=== PATIENT | male | born 1960 | race American Indian/Alaskan Native ===

== ENCOUNTER 2021-06-30 00:54 | Emergency (ER) | payer OTHER ==
[~2021-06-30] VITALS: Ht 167.6 cm; Wt 74.8 kg
== END 2021-06-30 01:59 | disposition home or self-care (01) ==
LOC: ED 00:54
DX: T51.91XA Toxic effect of unspecified alcohol, accidental (unintentional), initial encounter (principal); S40.211A Abrasion of right shoulder, initial encounter; S00.31XA Abrasion of nose, initial encounter; V19.9XXA Pedal cyclist (driver) (passenger) injured in unspecified traffic accident, initial encounter; Z23 Encounter for immunization
CPT/HCPCS: 90471; 90715; 99284-25